=== PATIENT | male | born 1990 | race Caucasian/White ===

== ENCOUNTER 2018-07-13 10:53 | Emergency (ER) | payer MEDICAID ==
[~2018-07-13] VITALS: Ht 172.7 cm; Wt 98.6 kg
[2018-07-13] MEDS ORDERED: ketorolac trometh. 30mg/ml inj. IM ONE (12:15)
[2018-07-13 12:21] VITALS: BP 128/75
== END 2018-07-13 12:29 | disposition home or self-care (01) ==
LOC: ER 10:53
DX: R07.81 Pleurodynia (principal)
CPT/HCPCS: 96372; 99283; J1885